=== PATIENT | male | born 1960 | race Caucasian/White ===

== ENCOUNTER → 2016-10-07 13:22 | Outpatient (CLI) | payer BC ==
[2014-10-18 06:46] VITALS: BMI 33.1
[~2016-10-07 13:22] MED LIST: ASPIRIN325 MG PO; ATIVAN0.5 MG; CORDARONE200 MG PO; CYCLOBENZAPRINE10 MG PO; DEXILANT60 MG PO; DILANTIN100 MG PO; HYDROCODONE-APA1 TAB PO; IMDUR30 MG PO; LASIX20 MG PO; LIPITOR40 MG PO; LOPRESSOR50 MG PO; MICRO-K10 MEQ PO; OXYBUTYNIN CHLOR5 MG PO; PHENERGAN25 M1 PO; PLAVIX75 MG PO; PRILOSEC20 MG PO; PRINIVIL10 MG PO; RANEXA500 MG
== END | disposition home or self-care (01) ==
LOC: D.RAD 13:22
DX: M54.5 Low back pain (principal); M48.06 Spinal stenosis, lumbar region; M47.26 Other spondylosis with radiculopathy, lumbar region

== ENCOUNTER → 2017-04-20 15:39 | Outpatient (CLI) | payer BC ==
[2014-10-18 06:46] VITALS: BMI 33.1
== END | disposition home or self-care (01) ==
LOC: D.MRI 15:39
DX: M25.559 Pain in unspecified hip (principal)

== ENCOUNTER → 2017-05-03 16:03 | Outpatient (CLI) | payer BC ==
[2014-10-18 06:46] VITALS: BMI 33.1
[~2017-05-03 16:03] MED LIST changes: +K-TAB10 MEQ PO; -MICRO-K10 MEQ PO
== END | disposition home or self-care (01) ==
LOC: D.MRI 16:03
DX: M25.552 Pain in left hip (principal)

== ENCOUNTER 2017-05-05 10:10 | Outpatient (CLI) | payer BC ==
[~2017-05-05] VITALS: Ht 170.2 cm; Wt 104.5 kg
[2017-05-05 10:58] VITALS: BP 130/93; Ht 170.2 cm; Wt 104.5 kg
[2017-05-05 11:57] LABS: BASOPHILS 0.5 % (0-2); EOSINOPHILS 2.5 % (0-7); HEMATOCRIT 47.7 % (42.0-54.0); HEMOGLOBIN 16.6 g/dL (13.5-17.5); IMMATURE GRANULOCYTES 0.8 % (0-5); LYMPHOCYTES 26.9 % (15-50); MCH 33.1 pg (26.0-34.0); MCHC 34.8 g/dL (31.0-37.0); MEAN PLATELET VOLUME 10.2 fL (7.4-10.4); MONOCYTES 8.8 % (2-11); NEUTROPHILS 60.5 % (40-80); PLATELET COUNT 204 10x3/uL (130-400); RBC 5.02 10x6/uL (4.20-6.10); RDW 13.1 % (11.5-14.5); WBC 6.5 10x3/uL (4.8-10.8)
[2017-05-05 12:08] LABS: CALC OSMOLALITY 276 mosm/kg (275-300); CALCIUM 8.3 mg/dL (8.5-10.1); CARBON DIOXIDE 31.8 mmol/L (21.0-32.0); CHLORIDE - SERUM 104 mmol/L (98-107); CREATININE - SERUM 0.9 mg/dL (0.6-1.3); GLUCOSE 104 mg/dL (74-106); SODIUM 140 mmol/L (136-145); UREA NITROGEN 8 mg/dL (7-18); eGFR NON AFRICAN AMERICAN > 90 mL/min (90-120)
--- NOTE | 2017-05-05 14:00 | NUR ---
IV TO RIGHT HAND DC'D WITH TIP INTACT, NO REDNESS OR SWELLING NOTED TO SITE. DISCHARGE INSTRUCTIONS REVIEWED, WILL FOLLOW UP WITH DR CRUZ FOR RESULTS. VERBALIZED UNDERSTANDING. DC'D VIA WC WITH FAMILY AND STAFF
== END 2017-05-05 14:00 | disposition home or self-care (01) ==
LOC: D.MRI 10:10
PROVIDERS: Anesthesiology
DX: M25.552 Pain in left hip (principal); J44.9 Chronic obstructive pulmonary disease, unspecified; G47.30 Sleep apnea, unspecified; Z95.1 Presence of aortocoronary bypass graft; Z95.5 Presence of coronary angioplasty implant and graft; I10 Essential (primary) hypertension; I25.10 Atherosclerotic heart disease of native coronary artery without angina pectoris

== ENCOUNTER 2018-01-14 15:43 | Observation (INO) | payer OTHER ==
[~2018-01-14] VITALS: Ht 170.2 cm; Wt 98.5 kg
--- NOTE | ~2018-01-14 | HEMODYNAMI ---
PATIENT:DEYSI ALVAREZ MEDICAL RECORD: [id number] : 58 [id number] ADMISSION DATE: 01/14/18 Generatedon:01/15/201812:38 Patient name: DEYSI ALVAREZ Patient #: [id number] SSN: [id number] : 1960 Date of study: 01/15/2018 Page: Of Hemodynamic Procedure Report Patient Data Patient Demographics Procedure consent was obtained First Name: DEYSI Gender: Male Last Name: ANTONIO : 1960 Middle Initial: JOON Age: 57 year(s) Patient #: [id number] Race: SSN: [id number] Additional ID: [id number] Contact details Address: [address] [place] [address] State: [place] City: [place] Zip code: [address] Past Medical History Allergies Allergen Reaction Date Comments Reported Heparin agents 09/04/2014 Other allergy 01/15/2018 Heprin Other allergy 01/15/2018 Heparin Admission Admission Data Admission Date: 01/14/2018 Admission Time: 16:54 Arrival Date: 01/14/2018 Arrival Time: 16:54 Admit Source: Other Insurance Payor: Private Room #: [id number] health insurance Weight (lbs.): 213 Weight (kg.): 96.62 Lab Results Lab Result Date: 01/15/2018 Lab Result Time: 0:00 Biochemistry Name Units Result Min Max BUN mg/dl 12 --(-*--)-- 7 18 Creatinine mg/dl 0.9 --(-*--)-- 0.6 1.3 CBC Name Units Result Min Max Hemoglobin g/dl 18 --(----)*- 13.5 17.5 Procedure Procedure Types Cath Procedure Diagnostic Procedure LHC LHC w/Coronaries w/Grafts Sedation Charges Moderate Sedation up to 15 minutes Peripheral Cath Diagnostic Procedure Cath Peripheral Renal Arteriogram 4-Vessel Subclavian Arteriogram Uni Procedure Description Procedure Date Procedure Date: 01/15/2018 Procedure Start Time: 12:09 Procedure End Time: 12:38 Procedure Staff Name Function Adriel Owusu MD Performing Physician Cassie Joshi RT Monitor Maury Jones RN Nurse Laura Keen RT Scrub Procedure Data Cath Procedure Fluoroscopy Diagnostic fluoroscopy Total fluoroscopy Time: 4.1 time: 4.1 min min Diagnostic fluoroscopy Total fluoroscopy dose: 800 dose: 800 mGy mGy Contrast Material Contrast Material Type Amount (ml) Isovue 300 92 Entry Location Entry Primary Successful Side Size Upsize Upsize Entry Closure Succes sful Closure Location (Fr) 1 (Fr) 2 (Fr) Remarks Device Remarks Femoral Right 5 Fr Exoseal artery Estimated blood loss: 5 ml Diagnostic catheters Device Type Used For End Catheter Placement MULTIPACK JL 4.0 5Fr Left Coronary catheter Angiography MULTIPACK 3DRC 5Fr Right Coronary catheter Angiography MULTIPACK Pigtail 5 Fr LV Angiography catheter MULTIPACK 3DRC 5Fr Multi-vessel catheter Angiography Procedure Complications No complications Procedure Medications Medication Administration Route Dosage 0.9% NaCl I.V. 100 ml/hr Oxygen etCO2 Nasal cannula 2 l/min Lidocaine 2% added to field 20 0.9% NaCl I.A. 1000 ml Versed I.V. 2 mg Fentanyl I.V. 50 mcg Hemodynamics Rest HGB: 18 (g/dl) Heart Rate: 49 (bpm) Pressure Samples Time Site Value (mmHg) Purpose Heart Use Rate(bpm) 12:21 AO 130/79(102) Snapshot 54 12:22 AO 205/36(79) Snapshot 58 12:22 AO 118/78(96) Snapshot 57 12:22 AO 126/76(99) Snapshot 56 12:26 LV 129/0,21 EDP 55 12:26 AO 131/78(100) Pullback 53 12:26 LV 126/13,21 Pullback 53 Gradients Valve Time Site 1 Site 2 Mean SEP/DFP Peak To Heart Use (mmHg) (sec/min) Peak Rate (mmHg) (bpm) Aortic 12:26 LV AO 0 6 0 53 126/13,21 131/78(100) Calculations Valve P-P Mean Valve Index Valve Source Name Gradient Area Flow (cm2) Aortic 0 0 0 0 Snapshots Pre Cath Intra NCS Post Cath Vital Signs Time Heart Resp SPO2 etCO2 NIBP (mmHg) Rhythm Pain Sedation Rate (ipm) (%) (mmHg) Status Level (bpm) 11:46:25 52 15 100 28.7 145/102(123) NSR 0 (11) 10(A) , No pain 11:51:05 56 16 100 31.7 146/90(112) NSR 0 (11) 10(A) , No pain 11:55:46 56 15 96 31 104/74(88) NSR 0 (11) 10(A) , No pain 12:00:20 54 14 96 33.3 109/75(91) NSR 0 (11) 10(A) , No pain 12:05:34 55 15 97 33.2 115/81(95) NSR 0 (11) 10(A) , No pain 12:10:43 54 17 97 17.3 139/94(115) NSR 0 (11) 10(A) , No pain 12:15:21 54 14 97 33.2 120/80(97) NSR 0 (11) 10(A) , No pain 12:20:02 54 16 98 35.5 122/84(99) NSR 0 (11) 10(A) , No pain 12:24:39 56 16 98 34 119/83(98) NSR 0 (11) 10(A) , No pain 12:29:13 55 14 97 31.7 126/85(106) NSR 0 (11) 10(A) , No pain 12:33:49 54 15 98 31 127/90(108) NSR 0 (11) 10(A) , No pain 12:38:26 55 14 98 33.2 126/87(99) NSR 0 (11) 10(A) , No pain Medications Time Medication Route Dose Verified Delivered Reason Notes Effectiv eness by by 11:51:39 0.9% NaCl I.V. 100 Maury Maury Per ml/hr Lorigan Lorigan physician RN RN 11:51:48 Oxygen etCO2 2 Maury Maury Per Nasal l/min Lorgregoria Lorigan physician cannula RN RN 11:52:13 Lidocaine added 20ml Maury Maury for local 2% to vial Lorigan Lorigan anesthetic field RN RN 11:53:13 0.9% NaCl I.A. 1,000 Maury Maury used for ml Lorigan Lorigan watch assembler RN 12:09:01 Versed I.V. 2 mg Maury Maury for Lorigan Lorigan sedation RN RN 12:09:17 Fentanyl I.V. 50 Maury Mendiola for [facility] Robert Jones sedation RN teaching assistant Log Time Note 11:38:46 Patient Weight : 213 lbs 11:40:00 Diagnostic Cath status Elective 11:40:02 Cassie Joshi RT(R) sent for patient. Start room use. 11:40:04 Time tracking: Call back (After hours or weekends) 11:40:09 Plan of Care:Hemodynamics will remain stable., Cardiac rhythm will remain stable., Comfort level will be maintained., Respiratory function will remain adequate., Patient/ family verbilizes understanding of procedure., Procedure tolerated without complication., Recovers from procedure without complications.. 11:40:15 Patient received from Med II to CCL 1 Alert and oriented. Tansferred to table in Supine position. 11:40:16 Warm blankets applied, and terence hugger turned on for patient comfort. 11:40:17 Correct patient and procedure confirmed by team. 11:40:18 Signed procedure consent form obtained from patient. 11:40:19 ECG and BP/O2 sat monitors applied to patient. 11:40:21 Vital chart was started 11:40:23 Baseline sample Acquired. 11:40:28 Rhythm: sinus rhythm 11:40:30 Full Disclosure recording started 11:40:37 H&P Date Dictated: 01/14/2018 Within 30 days and on chart.. 11:40:38 Pre-procedure instructions explained to patient. 11:40:42 Family in patients room. 11:40:44 Patient NPO since Midnight. 11:40:58 Patient allergic to Other allergyHeprin 11:41:01 Was the patient premedicated? Yes 11:41:03 Is patient on blood thinner?Yes 11:41:06 ACC The patient was administered the following blood thiners within the last 24 hours: ACCPlavix 11:41:10 Patient diabetic? No. 11:41:14 Snore? Yes 11:41:15 Sleep apnea? Yes 11:41:20 Dentures? No ? 11:41:24 Patient pain scale 0/10 ?. 11:41:31 IV patent on arrival in left forearm with 0.9% NaCl at [facility]. 11:41:35 Lab results completed and on chart. 11:41:39 Right groin area was prepped with chlora-prep and draped in sterile fashion 11:41:41 Alarms reviewed by R. N. 11:41:42 Sharps counted by scrub and verified by R.N. 11:41:43 Physician paged 11:51:39 0.9% NaCl 100 ml/hr I.V. was administered by Maury Jones RN; Per physician; 11:51:48 Oxygen 2 l/min etCO2 Nasal cannula was administered by Maury Jones RN; Per physician; 11:52:13 Lidocaine 2% 20ml vial added to field was administered by Maury Jones RN; for local anesthetic; 11:53:13 0.9% NaCl 1,000 ml I.A. was administered by Maury Jones RN; used for procedure; 11:57:17 Admit Source: Other 11:57:22 Arrival Date: 01/14/2018 4:54:00 PM 11:57:29 Insurance Payor : Private health insurance 11:58:07 Lab Result : Creatinine 0.9 mg/dl 11:58:07 Lab Result : BUN 12 mg/dl 11:58:07 Lab Result : Hemoglobin 18 g/dl 12:03:22 Physician arrived 12:03:22 --------ALL STOP TIME OUT------ 12:03:23 Final Timeout: patient, procedure, and site verified with staff and physician. All members of the team are in agreement. 12:03:26 Right groin site verified by team. 12:03:29 Physical assessment completed. ASA score P 2 - A patient with mild systemic disease as per Adriel Owusu MD. 12:03:34 Sedation plan: IV Moderate Sedation Medication:Versed, Fentanyl 12:04:23 Patient allergic to Other allergyHeparin 12:09:01 Versed 2 mg I.V. was administered by Maury Jones RN; for sedation; 12:09:13 Use device set Femoral Dx 12:09:14 ACIST Syringe (44633) opened to sterile field. 12:09:14 Bag Decanter () opened to sterile field. 12:09:15 Medline Cath Pack ([id number]) opened to sterile field. 12:09:16 DIAGNOSTIC WIRE .035 260cm J wire (970395) opened to sterile field. 12:09:17 Fentanyl 50 mcg I.V. was administered by Maury Jones RN; for sedation; 12:09:17 ACIST Hand Control (83663) opened to sterile field. 12:09:17 ACIST Manifold (18469) opened to sterile field. 12:09:18 DIAGNOSTIC Multipack 5Fr catheter set ([id number]) opened to sterile field. 12:09:20 MICROPUNCTURE 4FR Cook ([id number]) opened to sterile field. 12::21 SHEATH Prelude 5Fr 0.035 ([id number]-3N-97-035) opened to sterile field. 12::26 Procedure started. 12::30 Zero performed for pressure channel P1 12:09:39 Local anesthetic to right femoral artery with Lidocaine 2% by Adriel Owusu MD.INITIAL ACCESS ONLY 12::40 Access obtained with 4Fr micropunture. 12:15:11 Unable to get 5 f sheath through tissue; 6f prelude dilator used to help gain access; 12:15:27 SHEATH 6Fr Prelude ([id number]) opened to sterile field. 12:15:50 A 5 Fr sheath was inserted into the Right Femoral artery 12:16:01 A MULTIPACK JL 4.0 5Fr catheter was advanced over the wire and used for Left Coronary Angiography. 12:16:54 LCA angiography performed. 12:17:55 Injector settings: Ml/sec: 3, Volume: 6, 12:19:16 Catheter removed. 12:19:23 A MULTIPACK 3DRC 5Fr catheter was advanced over the wire and used for Right Coronary Angiography. 12:20:14 RCA angiography performed. 12:20:17 Injector settings: Ml/sec: 3, Volume: 6, 12:21:29 Right subclavian angiography performed 12:22:18 Left subclavian angiography performed 12:25:12 pressures measured from inominate into axillary; preasures measured from axillary artery to subclavian artery. No gradient or stenosis. 12:25:20 Bilateral renal angiography performed. 12:25:53 Catheter removed. 12:25:57 A MULTIPACK Pigtail 5 Fr catheter was advanced over the wire and used for LV Angiography. 12:26:20 LV hemodynamics recorded. 12:26:21 LV gram done using ALEJANDRO 12:26:24 Injector settings: Ml/sec: 12, Volume: 8, 12:27:08 EF : 50 % 12:27:19 Catheter removed. 12:29:12 A MULTIPACK 3DRC 5Fr catheter was advanced over the wire and used for Multi-vessel Angiography. 12:29:20 GALAVIZ angiography performed. 12:30:11 Catheter removed. 12:30:25 EXOSEAL 5Fr (EX500) opened to sterile field. 12:30:55 Sheath removed intact; hemostasis achieved with Exoseal to the Right Femoral artery. 12:30:58 Procedure ended.(Physican Out) 12:31:56 Fluoroscopy time 04.10 minutes. 12:32:00 Flurop Dose total: 800 12:32:00 Fluoroscopy dose: 800 mGy 12:32:10 Contrast amount:Isovue 300 92ml. 12:32:12 Sharps counted by scrub and verified by R.N. 12:32:39 Insertion/operative site no bleeding no hematoma. 12:32:42 Post-op/insertion site Right Femoral artery dressed using a 4 x 4 and Tegaderm. 12:32:51 Post right femoral artery:stable 12:32:53 Post Procedure Pulses reassessed and unchanged 12:32:56 Post procedure rhythm: unchanged. 12:32:59 Estimated blood loss: 5 ml 12:33:01 Post procedure instruction explained to patient.Patient verbalizes understanding. 12:33:02 Patient needs reinforcement of post procedure teaching. 12:37:20 Procedure type changed to Cath procedure, Diagnostic procedure, LHC, LHC w/Coronaries w/Grafts, Sedation Charges, Moderate Sedation up to 15 minutes, Peripheral Cath Diagnostic Procedure, Cath Peripheral, Renal Arteriogram, 4-Vessel, Subclavian Arteriogram Uni 12:38:17 Procedure and supply charges have been captured, reviewed, submitted and are correct. 12:38:22 Procedure Complication : No complications 12:38:24 Vital chart was stopped 12:38:25 See physician's report for complete and final results. 12:38:27 Report given to Med II. 12:38:29 Patient transfered to Med II with Stretcher. 12:38:33 Procedure ended. 12:38:33 Full Disclosure recording stopped 12:38:38 End room use (Document Last) Device Usage Item Name Manufacture Quantity Catalog Number Hospital Part Current M inimal Lot# / Charge Number Stock Stock Serial# Code ACIST Syringe Acist 1 16770 749548 549475 257631 2 0 (78861) [employer] Bag Decanter Microtek 1 2001S 266285 28097 231759 5 (2001S) Medical Inc. Medline Cath Cardinal 1 [id number] 589197 46816 274501 5 [facility] ([id number]) DIAGNOSTIC WIRE St Adebayo 1 [id number] 021285 943695 561271 3 0 .035 260cm J wire (566762) ACIST Hand Acist 1 26288 532852 364666 674110 5 Control (54931) [employer] ACIST Manifold Acist 1 18342 432049 422864 746321 5 (01927) [employer] DIAGNOSTIC Cardinal 1 [id number] 014419 16269 189209 3 0 Multipack 5Fr Health catheter set (QL0509) MICROPUNCTURE Cook Medical 1 [id number] 949957 154567 718449 5 4FR Cook ([id number]) SHEATH Prelude Merit 1 YPW-1T-45-035 086756 266698 470144 5 5Fr 0.035 Medical (HRI-5M-76-035) SHEATH 6Fr Merit 1 [id number] 691449 168600 871173 5 Prelude Medical ([id number]) MULTIPACK JL Cardinal 1 [id number] 5 4.0 5Fr Health catheter MULTIPACK 3DRC Cardinal 1 [id number] 5 5Fr catheter Health MULTIPACK Cardinal 1 668135 5 Pigtail 5 Fr Health catheter EXOSEAL 5Fr Cardinal 1 EX500 206012 742893 444068 1 0 (EX500) Health Signature Audit [place] Stage Time Signature Unsigned Intra-Procedure 01/15/2018 Cassie Joshi 12:38:55 PM RT(R) Signatures Monitor : Cassie Joshi RT Signature : Date : Time : [facility] [address] [place] [address]
--- NOTE | ~2018-01-14 | EC ---
PATIENT:DEYSI ALVAREZ DATE OF SERVICE: 01/14/18 SEX: M MEDICAL RECORD: [id number] DATE OF : 58 LOCATION:D. D.212 AGE OF PATIENT: 57 ADMISSION DATE: 01/14/18 REFERRING PHYSICIAN: INTERPRETING PHYSICIAN: CRESCENCIO BLAKE MD ECHOCARDIOGRAM REPORT ECHO CHARGES 4 ECHO COMPLETE Date: 01/15 CLINICAL DIAGNOSIS: CHEST PAIN HX CAD/CABG/HTN ECHOCARDIOGRAPHIC MEASUREMENTS (adult normal given) AC root (d.<3.7cm) 3.8 cm LV Septum d (<1.2 cm> 1.6 cm Valve Excursion 1.5 cm LV Septum (systole) 1.8 cm Left Atria (s.<4.0cm> 3.7 cm LVPW d(<1.2cm) 1.6 cm RV (d.<2.3cm) 3.0 cm LVPW (sytole) 1.9 cm LV diastole(<5.6CM) 4.9 cm MV E-F(>70mm/sec) cm LV systole 3.6 cm LVOT Diameter 2.3 cm MV exc.(>10mm) 1.6 cm Est.ejection fraction (50-75%) % DOPPLER: LVIT cm/sec A 81.0 cm/sec E 70.0 cm/sec LA cm/sec RVSP 18 mmHg LVOT 90 cm/sec AOP1/2T m/s Asc. Ao 126 cm/sec RVOT 72 cm/sec RA cm/sec PA 80 cm/sec AV Gradient Peak 6.33 mmHg AV Mean 3.53 mmHg AV Area 3.5 cm MV Gradient Peak 5.12 mmHg MV Mean 1.13 mmHg MV Area cm COMMENTS: Airport Manager: 2 LASHAUN CASTLE Car Dryer: 4 Dr. Blake TAPE# PACS Pericardial Effusion N DATE OF SERVICE: PROCEDURE: Transthoracic echocardiogram. FINDINGS: 1. Left ventricle shows mild concentric left ventricular hypertrophy. Ejection fraction is 55%. Inflow characteristics consistent with diastolic dysfunction. 2. The left atrium is normal size, normal function. 3. The aortic valve is normal size, normal function, normal structure. 4. The mitral valve is normal structurally with trace mitral regurgitation. ECHOCARDIOGRAM REPORT [id number] DEYSI ALVAREZ 5. The tricuspid valve is normal. 6. The pericardium is normal. 7. The right ventricle is normal. 8. The right atrium is normal. CONCLUSION: The patient has evidence of mild hypertensive heart disease, otherwise normal echocardiogram. TRANSINT:[id number] Voice Confirmation ID: [id number] DOCUMENT ID: [id number] CRESCENCIO BLAKE MD at 0942 CC: [id number] DICTATION DATE: 01/16/18 0712 BUSINESS DEVELOPMENT DIRECTOR: 01/16/18 0828 DIS IN 01/15/18 [id number] [place] [address]
[2018-01-14 16:23] LABS: BASOPHILS 0.6 % (0-2); IMMATURE GRANULOCYTES 0.3 % (0-5); LYMPHOCYTES 26.7 % (15-50); MCH 32.9 pg (26.0-34.0); MCHC 35.3 g/dL (31.0-37.0); MCV 93.2 fL (80.0-100.0); MONOCYTES 9.7 % (2-11); NEUTROPHILS 60.7 % (40-80); PLATELET COUNT 180 10x3/uL (130-400); RBC 5.47 10x6/uL (4.20-6.10); RDW 13.1 % (11.5-14.5); WBC 6.9 10x3/uL (4.8-10.8)
[2018-01-14 16:38] LABS: ALBUMIN 3.4 g/dL (3.4-5.0); ALKALINE PHOSPHATASE 72 U/L (46-116); ALT (SGPT) 64 U/L (10-68); BILIRUBIN - TOTAL 0.32 mg/dL (0.2-1.3); CALC OSMOLALITY 278 mosm/kg (275-300); CARBON DIOXIDE 23.5 mmol/L (21.0-32.0); CHLORIDE - SERUM 106 mmol/L (98-107); CREATININE - SERUM 0.9 mg/dL (0.6-1.3); GLUCOSE 123 mg/dL (74-106); POTASSIUM - SERUM 3.9 mmol/L (3.5-5.1); PROTEIN - SERUM 6.8 g/dL (6.4-8.2); SODIUM 139 mmol/L (136-145); UREA NITROGEN 12 mg/dL (7-18); eGFR NON AFRICAN AMERICAN > 90 mL/min (90-120)
[2018-01-14 16:49] LABS: CHOLESTEROL, TOTAL 189 mg/dL (0-200); CKMB 0.3 U/L (0.0-3.6); CREATINE KINASE 87 UL (21-232); HDL CHOLESTEROL 63 mg/dL (32-96); LDL CHOLESTEROL 106 mg/dL (0-100); LDL-HDL RATIO 1.7 ratio (1.5-3.5); PHENYTOIN (DILANTIN) 6.5 ug/mL (10.0-20.0); TRIGLYCERIDE 100 mg/dL (30-200)
[2018-01-14 16:53] LABS: TROPONIN-I < 0.017 ng/mL (0.000-0.060)
[2018-01-14 18:05] VITALS: BP 135/95; Ht 170.2 cm; Wt 98.5 kg
[2018-01-14 20:00] VITALS: BP 127/86
[2018-01-14 22:07] LABS: CKMB 0.4 U/L (0.0-3.6); CREATINE KINASE 76 UL (21-232)
[2018-01-14 22:08] LABS: TROPONIN-I < 0.017 ng/mL (0.000-0.060)
[2018-01-15 04:07] LABS: CKMB 0.3 U/L (0.0-3.6); CREATINE KINASE 69 UL (21-232); TROPONIN-I < 0.017 ng/mL (0.000-0.060)
[2018-01-15 05:48] VITALS: BP 115/66
[2018-01-15 08:02] VITALS: BP 117/76
[2018-01-15 08:36] LABS: BASOPHILS 0.7 % (0-2); HEMATOCRIT 52.3 % (42.0-54.0); HEMOGLOBIN 18.3 g/dL (13.5-17.5); IMMATURE GRANULOCYTES 0.1 % (0-5); LYMPHOCYTES 27.1 % (15-50); MCH 32.9 pg (26.0-34.0); MCV 93.9 fL (80.0-100.0); MEAN PLATELET VOLUME 9.8 fL (7.4-10.4); MONOCYTES 11.7 % (2-11); NEUTROPHILS 57.4 % (40-80); PLATELET COUNT 187 10x3/uL (130-400); RBC 5.57 10x6/uL (4.20-6.10); RDW 13.3 % (11.5-14.5); WBC 6.8 10x3/uL (4.8-10.8)
[2018-01-15 09:01] LABS: CALC OSMOLALITY 277 mosm/kg (275-300); CARBON DIOXIDE 21.8 mmol/L (21.0-32.0); CHLORIDE - SERUM 106 mmol/L (98-107); CKMB 0.2 U/L (0.0-3.6); CREATINE KINASE 60 UL (21-232); CREATININE - SERUM 0.8 mg/dL (0.6-1.3); GLUCOSE 106 mg/dL (74-106); POTASSIUM - SERUM 4.3 mmol/L (3.5-5.1); SODIUM 140 mmol/L (136-145); UREA NITROGEN 11 mg/dL (7-18); eGFR NON AFRICAN AMERICAN > 90 mL/min (90-120)
[2018-01-15 09:08] LABS: TROPONIN-I < 0.017 ng/mL (0.000-0.060)
[2018-01-15] MEDS ORDERED: METOPROLOL TART50 MG PO (12:52)
== END 2018-01-15 19:41 | disposition home or self-care (01) ==
LOC: D.ER 15:43 → D.EDHOLD 16:54 → OBSVTIME 16:58 → D.M2 17:30
PROVIDERS: Emergency Medicine; Internal Medicine Cardiovascular Disease
DX: I16.0 Hypertensive urgency (principal); I25.110 Atherosclerotic heart disease of native coronary artery with unstable angina pectoris; Z95.5 Presence of coronary angioplasty implant and graft; Z95.1 Presence of aortocoronary bypass graft; Z87.891 Personal history of nicotine dependence; G25.81 Restless legs syndrome; I48.91 Unspecified atrial fibrillation